=== PATIENT | female | born 1955 | race Caucasian/White ===

== ENCOUNTER 2018-05-09 09:59 | Outpatient (CLI) | payer BC ==
--- NOTE | 2018-05-09 11:59 | ULT ---
STANDARD CAROTID DOPPLER ULTRASOUND: HISTORY: Dizziness. TIA. COMPARISON: None. TECHNIQUE: Real-time, sandoval-scale, color Doppler, and spectral analysis of the of the extracranial carotid and v ertebral arteries was performed. FINDINGS: Low grade plaque of both carotid bulbs. No elevated peak systolic velocities in the internal carotid arteries. Antegrade flow in both vertebral arteries. The right ICA/CCA ratio is 1.08, and the left ICA/CCA ratio is 1.05. IMPRESSION: No hemodynamically significant stenosis. POS: SERGE
== END 2018-05-09 10:00 | disposition home or self-care (01) ==
LOC: SCSULT 09:59
PROVIDERS: ATTEND Family Medicine
DX: G45.9 Transient cerebral ischemic attack, unspecified (principal); R42 Dizziness and giddiness
CPT/HCPCS: 93880

== ENCOUNTER 2022-03-18 06:02 | Day surgery (SDC) | payer MEDICARE ==
[2022-03-17 10:59] VITALS: BMI 23.8
[2022-03-18] MEDS ORDERED: Fentanyl 100 MCG/2 ML VIAL ONE (07:07)
[2022-03-18] MEDS ORDERED: Midazolam HCl 2 mg/2 ml Vial ONE (07:07)
[2022-03-18] MEDS ORDERED: Bupivacaine PF 0.5% 30 ML VIAL ONE (07:11)
[2022-03-18] MEDS ORDERED: Bupivacaine HCl 0.5%/Epinephrine 1:200,000/PF 30 ml Vial ONE (07:19)
[2022-03-18] MEDS ORDERED: ePHEDrine 50 MG/ML VIAL ONE (07:19)
[2022-03-18] MEDS ORDERED: Dexamethasone 20 MG/5 ML VIAL ONE (07:19)
[2022-03-18] MEDS ORDERED: PROPOFOL 200 MG/20 ML VIAL ONE (07:19)
[2022-03-18] MEDS ORDERED: Ondansetron PF 4 MG/2 ML Vial ONE (07:19)
[2022-03-18] MEDS ORDERED: Sodium Chloride 0.9% 100 ML ONE (07:28)
[2022-03-18] MEDS ORDERED: CEFAZOLIN 2 GM VIAL ONE (07:28)
== END 2022-03-18 10:33 | disposition home or self-care (01) ==
LOC: SDC 06:02
PROVIDERS: ATTEND Orthopaedic Surgery
PROC: 0PSH04Z Reposition Right Radius with Internal Fixation Device, Open Approach (ICD-10-PCS; principal; 2022-03-18)
DX: S52.571A Other intraarticular fracture of lower end of right radius, initial encounter for closed fracture (principal); S63.502A Unspecified sprain of left wrist, initial encounter; J30.2 Other seasonal allergic rhinitis; W08.XXXA Fall from other furniture, initial encounter
CPT/HCPCS: 25609; 73100; C1713 ×3; J1100; J2250; J2405; J2704; J3010; J3490; S0020